=== PATIENT | female | born 1955 | race Caucasian/White ===

== ENCOUNTER 2020-08-12 13:19 | Day surgery (SDC) | payer BC, SELFPAY ==
[2020-08-05 20:39] VITALS: BMI 34.3
--- NOTE | 2020-08-11 10:16 | P.CONAN_ITS ---
Documented by User: Zuri Alvarado 08/11/20 10:18 HPI - Anesthesia Eval Consult details Narrative: 65yo F for Epidural Steroid Injection,L4-L5,L5-S1 transforaminal PMFSH Past Medical History Medical History Arthritis DJD (degenerative joint disease) High cholesterol HTN (hypertension) Hypercholesteremia Hypertension [place] eye Sinusitis Family History Family History Father Throat cancer Mother Diabetes Family/Other FH: mental illness Maternal Uncle Schizophrenia Maternal Grandmother Bipolar 1 disorder Surgical History Surgical History History of blepharoplasty History of bunionectomy History of section History of laparoscopic cholecystectomy History of total abdominal hysterectomy Social History Social History Smoking Status: Never smoker Use of substances other than those prescribed or required for medical reasons: No Advance Directives: No Advance Directives Information Provided: No Advance Directives on File: No Meds Allergies Allergy/AdvReac Type Severity Reaction Status Date / Time codeine [CODEINE] Allergy Severe VOMITING-SEVERE, Verified 08/05/20 20:44 vomiting clonazepam Allergy Unknown sedation Verified 08/05/20 20:44 ibuprofen Allergy Unknown abdominal Verified 08/05/20 20:44 pain pravastatin Allergy Unknown memory loss Verified 08/05/20 20:44 tramadol AdvReac Unknown vomitting Verified 08/05/20 20:44 Home Medications Medication Instructions Recorded Confirmed Type ezetimibe 1 tab PO DAILY 08/05/20 08/05/20 History hydrochlorothiazide 1 tab PO DAILY 08/05/20 08/05/20 History ibuprofen 600 mg PO TID PRN 08/05/20 08/05/20 History trazodone 1 tab PO BEDTIME 08/05/20 08/05/20 History Exam Exam Date and Time: August 11, 2020 1016 Height,Weight and Vital Signs: Height 4 ft 11 in Weight 77.111 kg Assessment and Plan Assessment Anesthesia Assessment: Chart Reviewed Documented by User: Leslee Hauser 08/12/20 13:38 PMFSH Past Medical History Medical History Arthritis DJD (degenerative joint disease) High cholesterol HTN (hypertension) Hypercholesteremia Hypertension [place] eye Sinusitis Family History Family History Father Throat cancer Mother Diabetes Family/Other FH: mental illness Maternal Uncle Schizophrenia Maternal Grandmother Bipolar 1 disorder Surgical History Surgical History History of blepharoplasty History of bunionectomy History of section History of laparoscopic cholecystectomy History of total abdominal hysterectomy Social History Social History Smoking Status: Never smoker Use of substances other than those prescribed or required for medical reasons: No Advance Directives: No Advance Directives Information Provided: No Advance Directives on File: No Meds Allergies Allergy/AdvReac Type Severity Reaction Status Date / Time codeine [CODEINE] Allergy Severe VOMITING-SEVERE, Verified 08/05/20 20:44 vomiting clonazepam Allergy Unknown sedation Verified 08/05/20 20:44 ibuprofen Allergy Unknown abdominal Verified 08/05/20 20:44 pain pravastatin Allergy Unknown memory loss Verified 08/05/20 20:44 tramadol AdvReac Unknown vomitting Verified 08/05/20 20:44 Home Medications Medication Instructions Recorded Confirmed Type ezetimibe 1 tab PO DAILY 08/05/20 08/05/20 History hydrochlorothiazide 1 tab PO DAILY 08/05/20 08/05/20 History ibuprofen 600 mg PO TID PRN 08/05/20 08/05/20 History trazodone 1 tab PO BEDTIME 08/05/20 08/05/20 History Exam Airway Mallampati Class: II TM Dist: >3cm Neck ROM: Full
--- NOTE | 2020-08-12 07:24 | MHC.SHP ---
Pre-Procedural Eval Section A The patient is an INPATIENT: No The History & Physical has been completed within 30 days and I have reviewed it.: No Section B Chief Complaint: spondylosis Details of Present Illness: low back pain Relevant Family History (Specify if Yes): No Relevant Social History: None Present Medications: see Short Stay Collaborative assessment Medical History: No relevant PMH History of Previous Operations: No relevant previous surgery Allergies: Allergies Allergy/AdvReac Type Severity Reaction Status Date / Time codeine [CODEINE] Allergy Severe VOMITING-SEVERE, Verified 08/05/20 20:44 vomiting clonazepam Allergy Unknown sedation Verified 08/05/20 20:44 ibuprofen Allergy Unknown abdominal Verified 08/05/20 20:44 pain pravastatin Allergy Unknown memory loss Verified 08/05/20 20:44 tramadol AdvReac Unknown vomitting Verified 08/05/20 20:44 Review of Systems Sugical H&P ROS: Negative: Cardiovascular, Respiratory, Neurological, Psychiatric, Hem-Onc, Allergic/Immunologic, Gastrointestinal, Genitourinary, Musculoskeletal, Integumentary, Endocrine and Eyes/Ears/Nose/Throat and Yes, Specify: Constitution (obesity) Exam Surgical H&P Exam: Normal: HEENT, Normal: Heart, Normal: Lungs, Normal: Extremities, Normal: Abdomen, Normal: Skin and Normal: Neurological Plan Diagnosis/Plan: Unchanged I have reviewed the history and physical and performed a pertinent physical examination on my patient. No changes have occurred unless specified.
[2020-08-12 13:40] VITALS: BP 169/74; PULSE 64; RESP 16; TEMP 36.3; O2SAT 98
[2020-08-12] MEDS: Lactated Ringers 1,000 ML 100 ML IVCONT (13:50)
--- NOTE | 2020-08-12 13:58 | FL_ITS ---
EXAMINATION: XR FLUOROSCOPY WITH IMAGES CLINICAL INFORMATION: Epidural steroid injection L4-L5 and L5-S1 COMPARISON: None. TECHNIQUE: Fluoroscopy performed by Dr. Jean-Paul Cyr. Fluoroscopy time: 0.5 minutes DAP: 19.5 mGycm2 Images: 3 FINDINGS: There is needle positioned inferior to the left L4-L5 pedicles with contrast opacifying the lateral epidural space. Visualized bones and disc levels are normal. FL/FL guidance in OR IMPRESSION: Fluoroscopy provided to Dr. Jean-Paul Cyr for epidural injection.
--- NOTE | 2020-08-12 14:00 | MHC.SHP ---
Pre-Procedural Eval Section A The History & Physical has been completed within 30 days and I have reviewed it.: No Section B Chief Complaint: spondylosis Details of Present Illness: DDD lumbar spine Relevant Family History (Specify if Yes): No Relevant Social History: None Present Medications: None Medical History: No relevant PMH History of Previous Operations: No relevant previous surgery Allergies: Allergies Allergy/AdvReac Type Severity Reaction Status Date / Time codeine [CODEINE] Allergy Severe VOMITING-SEVERE, Verified 08/05/20 20:44 vomiting clonazepam Allergy Unknown sedation Verified 08/05/20 20:44 ibuprofen Allergy Unknown abdominal Verified 08/05/20 20:44 pain pravastatin Allergy Unknown memory loss Verified 08/05/20 20:44 tramadol AdvReac Unknown vomitting Verified 08/05/20 20:44 Review of Systems Sugical H&P ROS: Negative: Constitution, Cardiovascular, Respiratory, Neurological, Psychiatric, Hem-Onc, Allergic/Immunologic, Gastrointestinal, Genitourinary, Musculoskeletal, Integumentary, Endocrine and Eyes/Ears/Nose/Throat Exam Surgical H&P Exam: Normal: HEENT, Normal: Heart, Normal: Lungs, Normal: Extremities, Normal: Abdomen, Normal: Skin and Normal: Neurological Plan Diagnosis/Plan: Unchanged I have reviewed the history and physical and performed a pertinent physical examination on my patient. No changes have occurred unless specified.
--- NOTE | 2020-08-12 14:01 | PM.OP ---
Brief Operative Note Date of Service: 08/12/20 Pre-op diagnosis: DDD lumbar spine Post-op diagnosis: same Procedure: TFESI L4- L5 and L5- S1 left Implants: no Surgeon: Jean-Paul Cyr MD Anesthesia: MAC Estimated blood loss (mL): 1 Pathology: none sent Condition: stable Disposition: PACU
--- NOTE | 2020-08-12 14:02 | P.OP_ITS ---
Operative Note Operative Note Date of Service: 08/12/20 Narrative: Informed consent was explained to the patient. All questions were explained and answered. The patient was taken inside the operating room where she was positioned prone on the operating table.. The patient was taken inside of the operating room where she was positioned prone operating table. ASA were applied and the patient was sedated. Time-out was performed delineating correct site, side, the nature of the procedure, patient's allergy, preoperative antibiotic if needed. All operating room staff was participating in OR time-out procedure. The lower back was prepped with ChloraPrep and draped with sterile towels. S terilely draped C-arm was brought over the operating field and sq picture of L4-and L5 vertebra and S1 AREA were delineated on the screen.attention was concentrated on L4- L5 level first. tilting machine ipsilateral to the patient's left side the largest picture of the pedicle was delineated on the screen . 3 mm below the lowest point of the pedicle projection on the skin the local anesthetic lidocain was injected. after that 22g 5 inch QP needle was inserted into the skin and advanced toward L4- L5 foramina under fluoroscopy guidance on AP, lateral and oblique views.When on the lateral view the tip of the needle entered the most superior and lateral point of the foramen the contrast was injected into the needle delineating anterior epidural spread of the contrast. treatment solution of lidocain PF 3 mls mixed with 40 mg of kenalog. After that the needle was withdrawn and the procedure was performed in the left L5- S1 foramina. The p-t tolerated the procedure well she was awaken, taken to the PACU without immediate complications.
[2020-08-12 15:16] VITALS: BP 142/67; PULSE 68; RESP 15; TEMP 36.8; O2SAT 99
[2020-08-12 15:32] VITALS: BP 150/73; PULSE 71; RESP 18; O2SAT 99
== END 2020-08-12 15:57 | disposition home or self-care (01) ==
PROVIDERS: PCP Internal Medicine; Visit Provider Anesthesiology
PROC: 3E0R33Z Introduction of Anti-inflammatory into Spinal Canal, Percutaneous Approach (ICD-10-PCS; CPT 64483; principal; 2020-08-12 15:10)
DX: M47.816 Spondylosis without myelopathy or radiculopathy, lumbar region (principal); M51.36 Other intervertebral disc degeneration, lumbar region; M47.27 Other spondylosis with radiculopathy, lumbosacral region; I10 Essential (primary) hypertension; M19.90 Unspecified osteoarthritis, unspecified site; Z79.899 Other long term (current) drug therapy; Z88.8 Allergy status to other drugs, medicaments and biological substances
CPT/HCPCS: 64483; 64484; J2250; J3010; J3300; Q9967

== ENCOUNTER → 2020-09-21 11:36 | Outpatient (BNVA) | payer BC, SELFPAY | PROVIDERS: Visit Provider Anesthesiology | DX: Z76.89 Persons encountering health services in other specified circumstances (principal) ==

== ENCOUNTER 2020-12-30 14:09 | Outpatient (REF) | payer OTHER, SELFPAY ==
--- NOTE | ~2020-12-30 | MM_ITS ---
EXAMINATION: MM SCREENING DIGITAL BREAST TOMOSYNTHESIS, BILATERAL CLINICAL INFORMATION: Screening. Asymptomatic. The lifetime risk of breast cancer based on the Tyrer-Cuzick Model is 9%. COMPARISON: Mammography: 10/19/2019, 10/06/2018, 11/01/2017 TECHNIQUE: Digital breast tomosynthesis is performed in both the craniocaudal and mediolateral oblique views along with computer-aided detection (CAD). Synthesized 2D images are generated from the tomosynthesis. FINDINGS: There are scattered areas of fibroglandular density (ACR BI-RADS breast composition Category b). There are no significant masses, abnormal calcifications, or other abnormalities. Parenchymal pattern is similar to prior studies. No developing density. No architectural abnormality. Again, there are scattered bilateral coarse and round calcifications. The axilla and skin contours are unremarkable. MM/MM tomosynthesis screening BI IMPRESSION: No mammographic evidence of malignancy. ASSESSMENT: BI-RADS 2: Benign RECOMMENDATION: Routine annual mammography screening. This patient's information was entered into a reminder system with a target due date for their next mammogram.
== END 2020-12-30 14:10 | disposition home or self-care (01) ==
LOC: HO.MAMMO 14:09
PROVIDERS: PCP Internal Medicine; Visit Provider Internal Medicine
DX: Z12.31 Encounter for screening mammogram for malignant neoplasm of breast (principal)
CPT/HCPCS: 77063; 77067

== ENCOUNTER → 2021-01-03 10:41 | Outpatient (BNVA) | payer OTHER, SELFPAY | PROVIDERS: Visit Provider Student in an Organized Health Care Education/Training Program | DX: M19.041 Primary osteoarthritis, right hand (principal); M19.042 Primary osteoarthritis, left hand | CPT/HCPCS: 99212 ==

== ENCOUNTER → 2021-01-04 09:22 | Outpatient (BNVA) | payer OTHER, SELFPAY | PROVIDERS: PCP Internal Medicine; Visit Provider Anesthesiology | DX: M47.27 Other spondylosis with radiculopathy, lumbosacral region (principal); M51.36 Other intervertebral disc degeneration, lumbar region | CPT/HCPCS: 99212 ==

== ENCOUNTER → 2021-01-10 09:53 | Outpatient (BNVA) | payer OTHER, SELFPAY | PROVIDERS: PCP Internal Medicine; Visit Provider Surgery | DX: Z80.3 Family history of malignant neoplasm of breast (principal) | CPT/HCPCS: 99212 ==

== ENCOUNTER 2021-04-11 06:12 | Outpatient (REF) | payer OTHER, SELFPAY | END 2021-04-11 06:13 | disposition home or self-care (01) | LOC: HO.RADIR 06:12 | PROVIDERS: Visit Provider Anesthesiology | DX: Z13.89 Encounter for screening for other disorder (principal) ==